=== PATIENT | male | born 1965 | race Caucasian/White ===

== ENCOUNTER → 2016-08-27 | Outpatient (CLI) | payer BC ==
--- NOTE | 2016-08-27 15:57 | PN ---
DATE OF SERVICE: 08/27/2016 This patient is a 50-year-old gentleman who has been followed in the sleep center for treatment of severe obstructive sleep apnea/hypopnea syndrome. Patient is using equipment practically 100% of the time for more than 4 hours. I checked his CPAP unit; usage 29 out of 30 nights for more than 4 hours. Leak is only 1 liter per minute. Apnea-hypopnea index reading is only 1.1 per hour. CPAP is at the pressure of 12 cm of water. RAMP starting at 6 cm of water. RAMP is on an automatic regimen. Patient feels comfortable; no sleepiness during the day. [place] Sleepiness Scale is 3. MEDICATIONS: 1. Benazepril. 2. Atorvastatin. 3. Toprol. 4. Cymbalta. 5. Hydrocodone. During physical exam, patient is in no distress. He did not take his pain medications today. VITAL SIGNS: BP 174/112. HR 100. Respiratory rate 16. No chest pain. No shortness of breath. Blood pressure on the right arm is 159/104. Weight 220. BMI 29.0. Temperature 98.6. Oxygen saturation at room air 97%. HEENT: PERRLA, EOMI. LUNGS: Clear. HEART: S1, S2 regular. ABDOMEN: Soft, nontender. Slightly obese. EXTREMITIES: No edema. IMPRESSION: 1. Severe obstructive sleep apnea/hypopnea syndrome. Apnea-hypopnea index 41.6, under control with CPAP at 12 cm of water. Patient demonstrated practically 100% compliance with treatment, benefitting from treatment. No problem with treatment. 2. Overweight. 3. Hypertension. 4. Hyperlipidemia. 5. Back problem. 6. Very rare restless leg symptoms; otherwise fine. 7. History of some restriction of nasal breathing secondary to nasal fracture ( ). PLAN: 1. Continue treatment with CPAP every night for the whole night with the same pressure. 2. Losing weight. 3. Sleep hygiene with regular time in bed for at least 8 hours. 4. No driving if feeling any sleepiness. 5. Prescription for all necessary CPAP supplies, including mask, tube and filters. Thank you very much for allowing me to participate in the management your patient. Sincerely, Ghulam Peng MD, PhD, FAASM. Diplomat of [place] Board of Sleep Medicine, Sleep Medicine Board by [place] Board of Medical Specialities, [place] Board of Internal Medicine
== END | disposition home or self-care (01) ==

== ENCOUNTER → 2017-12-09 | Outpatient (CLI) | payer BC ==
--- NOTE | 2017-12-09 16:01 | PN ---
PROGRESS NOTE DATE OF SERVICE: 12/09/2017 This patient is a 52-year-old gentleman who has been followed in the sleep center for treatment of severe obstructive sleep apnea-hypopnea syndrome. Patient continues to use his CPAP equipment without any problems every night for the whole night. He likes his machines, sleep well. No snoring. [place] Sleepiness Scale is 4. I checked his CPAP unit. CPAP pressure is 12 cm of water. Usage is 100% of the time, 7.9 hours on average. Leak is only 1 L/minute, which is nothing. Apnea-hypopnea index is only 1.1, which is perfect. MEDICATIONS: 1. Benazepril. 2. Atorvastatin. 3. Toprol. 4. Cymbalta. 5. Hydrocodone. PHYSICAL EXAMINATION: Patient in no distress. VITAL SIGNS: BP 153/94, HR 96, RR 16, height 6 feet 1 inch, weight 235, BMI 31, temperature 98.7, oxygen saturation at room air 95%. Repeat blood pressure on the right arm 146/84. HEENT: PERRLA, EOMI. Evaluation of oropharynx showed tongue protrudes midline; extremely low position of soft palate. NECK: Supple. No JVD. Thyroid is not palpable. LUNGS: Clear to percussion and to auscultation. Good air exchange. No wheezing or rhonchi. HEART: S1, S2 regular. No murmurs, gallops or rubs. ABDOMEN: Soft and nontender. Bowel sounds are present. No organomegaly appreciated. EXTREMITIES : No clubbing or cyanosis. TECHNOLOGY AUDITOR: Awake, alert, and oriented X3. Cranial nerves 2 to 7 intact. There is no fasciculation or atrophy. noted. No focal deficits observed. IMPRESSION: 1. Severe obstructive sleep apnea-hypopnea syndrome; apnea-hypopnea index 41.6, under full control with CPAP at 12 cm of water. Patient demonstrated 100% compliance with treatment, benefitting from treatment. 2. Hypertension. 3. Hyperlipidemia. 4. Back problems. 5. History of some restriction of nasal breathing after nasal fracture. 6. Mild obesity; body mass index 31. Patient's weight increased by 15 pounds since previous visit. PLAN: 1. Continue treatment with CPAP every night for the whole night. 2. Losing weight. 3. Sleep hygiene with regular time in bed for at least 8 hours. 4. No driving if feeling any sleepiness. 5. Prescription for all necessary CPAP supplies, including mask, tube, filters. 6. Follow-up visit in one year, or earlier if patient has any problems. Thank you very much for allowing me to participate in the management of your patient. Sincerely, Ghulam Peng MD, PhD, FAASM Diplomat of [place] Board of Medical Specialties [place] Board of Internal Medicine Senior Data Mining Analyst of [facility] [place] MMODL / JARRETTN: [id number] /
== END ==
LOC: SLEEP 14:40
PROVIDERS: ATTEND Internal Medicine
DX: G47.33 Obstructive sleep apnea (adult) (pediatric) (principal); I10 Essential (primary) hypertension; E78.5 Hyperlipidemia, unspecified; M79.89 Other specified soft tissue disorders; E66.9 Obesity, unspecified; Z68.31 Body mass index [BMI] 31.0-31.9, adult; Z99.89 Dependence on other enabling machines and devices; Z79.899 Other long term (current) drug therapy; Z87.09 Personal history of other diseases of the respiratory system; Z79.891 Long term (current) use of opiate analgesic

== ENCOUNTER → 2019-03-09 | Outpatient (CLI) | payer BC ==
--- NOTE | 2019-03-09 19:44 | PN ---
PROGRESS NOTE DATE OF SERVICE: 03/09/2019 This patient is a 53-year-old gentleman who has been followed in Sleep Center for treatment of obstructive sleep apnea-hypopnea syndrome. The patient has successfully continued to use his CPAP equipment every night. About one month ago, because the patient's CPAP unit did not function properly, his CPAP unit was replaced with a new one. Today is his first visit after he started to use new CPAP equipment. Patient continues to use it every night and sleeps well with it. He does not snore. [place] Sleepiness Scale is normal at 3. I checked his CPAP unit. CPAP pressure is 12 cm of water. Leak is 8 L/minute, which is acceptable. Usage is every night, and 29/30 nights for more than 4 hours with average usage 7.4 hours per night. Apnea-hypopnea index reading from the machine is only 0.6, which is absolutely perfect. MEDICATIONS: 1. Benazepril. 2. Atorvastatin. 3. Toprol. 4. Cymbalta. PHYSICAL EXAMINATION: GENERAL: A pleasant patient in no distress. VITAL SIGNS: BP 146/76, HR 61, RR 16, height 6 feet 2 inches, weight 240 pounds. Body mass index 30.9. Temperature 98.4, oxygen saturation at room air 96%. HEENT: PERRLA, EOMI. Evaluation of oropharynx showed tongue protrudes midline. Extremely low position of soft palate. Mallampati IV. NECK: Supple. No JVD. Thyroid is not palpable. Wide neck; 17-1/2 inches in circumference. LUNGS: Clear to percussion and to auscultation. Good air exchange. No wheezing or rhonchi. HEART: S1, S2 regular. No murmurs, gallops or rubs. ABDOMEN: Slightly obese. EXTREMITIES: No clubbing or cyanosis. HEEL ATTACHER: Awake, alert, and oriented X3. Cranial nerves 2 to 7 intact. There is no fasciculation or atrophy. noted. No focal deficits observed. IMPRESSION: 1. Obstructive sleep apnea-hypopnea syndrome, in severe range; apnea/hypopnea index 41.6. The patient has demonstrated 100% compliance with treatment, benefitting from treatment. 2. Hypertension. 3. Hyperlipidemia. 4. Back problems. 5. Restriction of nasal breathing after nasal fracture. 6. Mild obesity. PLAN: 1. The patient will continue to use CPAP equipment every night for the whole night. 2. Losing weight. 3. Sleep hygiene with regular time in bed for at least 8 hours. 4. No driving if feeling any sleepiness. 5. We will maintain all necessary prescriptions for CPAP supplies, including medium- sized full-face mask, heated tube, filters. Thank you very much for allowing me to participate in the management of your patient. Sincerely, Ghulam Peng MD, PhD, FAASM Diplomat of [place] Board of Medical Specialties [place] Board of Internal Medicine Prize Coordinator of [facility] [place] MMODL / JARRETTN: [id number] /
== END | disposition home or self-care (01) ==
LOC: SLEEP 14:30
PROVIDERS: ATTEND Internal Medicine
DX: G47.33 Obstructive sleep apnea (adult) (pediatric) (principal); E78.5 Hyperlipidemia, unspecified; I10 Essential (primary) hypertension; M53.9 Dorsopathy, unspecified; S02.2XXA Fracture of nasal bones, initial encounter for closed fracture; E66.9 Obesity, unspecified; Z79.899 Other long term (current) drug therapy; Z99.89 Dependence on other enabling machines and devices

== ENCOUNTER → 2020-09-12 | Outpatient (CLI) | payer BC ==
--- NOTE | 2020-09-12 22:38 | SFUN ---
SLEEP CENTER FOLLOW UP NOTE DATE OF SERVICE: 09/12/2020. 54-year-old gentleman has been followed in Sleep Center for treatment of obstructive sleep apnea-hypopnea syndrome. The patient continues to use his CPAP equipment every night for the whole night. No problems related to mask, fitting, pressures, humidification. [place] Sleepiness Scale today is 3. I checked CPAP unit. CPAP pressure is 12 cm of water, usage 27 out of 30 nights for more than 4 hours. Average usage 8.3 hours per night. Leak is 4 L/minute, which is normal. Apnea-hypopnea index only 1.2 which is perfect. Medications: Benazepril 10 mg once a day. Cymbalta 60 mg once a day, Allopurinol 300 mg once a day, Toprol-XL 100 mg once a day, atorvastatin 40 mg once a day. PHYSICAL EXAM: Patient in no distress. BP 145/94, HR 74, RR 15, height 6 and 2, weight 233, BMI 29.5, temperature 98.0, oxygen saturation at room air 95%. Oropharynx extremely low position of soft palate. Mallampati 4. NECK: Supple, no JVD. Thyroid is not palpable. LUNGS: Clear to percussion and to auscultation. Good air exchange. No wheezing or rhonchi. HEART: S1, S2 regular. No murmurs, gallops, or rubs. ABDOMEN: Soft and nontender. Bowel sounds are present. No organomegaly appreciated. EXTREMITIES: No clubbing or cyanosis. GEOMETRICIAN: Awake, alert, and oriented X3. Cranial nerves 2 to 7 intact. There is no fasciculation or atrophy. noted. No focal deficits observed. IMPRESSION: 1. Obstructive sleep apnea-hypopnea syndrome. Patient demonstrated good compliance with treatment benefitting from treatment. 2. Hypertension. 3. Gout. 4. Hyperlipidemia. 5. Back problems. PLAN: 1. Patient will continue to use PAP equipment every night for the whole night. 2. Sleep hygiene with regular time in bed for at least 7-1/2 to 8 hours. 3. Precautions related to driving. No driving if feeling sleepiness. 4. I will maintain all necessary prescription for PAP supplies including mask, tube, filters. 5. Watching weight. 6. No driving if feeling sleepiness. 7. Follow-up visit in 6 months or earlier if patient has any problems. Thank you very much for allowing me to participate in management of your patient. Sincerely, Ghulam Peng MD, PhD, FAASM Diplomat of [place] Board of Medical Specialties [place] Board of Internal Medicine Window Sash Installer of [facility] [place] SREEKANTH / YULIANA: [id number] /
== END | disposition home or self-care (01) ==
LOC: SLEEP 15:28
PROVIDERS: ATTEND Internal Medicine
DX: G47.33 Obstructive sleep apnea (adult) (pediatric) (principal); I10 Essential (primary) hypertension; M10.9 Gout, unspecified; E78.5 Hyperlipidemia, unspecified; M54.9 Dorsalgia, unspecified; Z99.89 Dependence on other enabling machines and devices; Z79.899 Other long term (current) drug therapy; Z79.811 Long term (current) use of aromatase inhibitors

== ENCOUNTER → 2021-10-23 | Outpatient (CLI) | payer BC ==
--- NOTE | 2021-10-23 18:34 | SFUN ---
SLEEP CENTER FOLLOW UP NOTE DATE OF SERVICE: 10/23/2021 This 55-year-old gentleman has been followed in Sleep Center for treatment of obstructive sleep apnea-hypopnea syndrome. The patient continues to use his CPAP equipment every night, but recently his machine became very noisy; so noisy that he he difficulties sleeping with the machine. It is a great problem for family for sleep. [place] Sleepiness Scale today is 7. I checked the CPAP unit. CPAP pressure is 12 cm of water. Usage is 30/30 nights, average 8 hours per night, which demonstrated good compliance. Leak is only 1 L/minute. Mask fits well. He is using a full-face mask. Apnea-hypopnea index is 1.1, which is absolutely normal. MEDICATIONS: 1. Benazepril 10 mg once a day. 2. Toprol-XL 100 mg once a day. 3. Allopurinol 300 mg once a day. 4. Cymbalta 60 mg once a day. 5. Spicer 10/325 mg four times a day. PHYSICAL EXAMINATION: GENERAL: Pleasant patient in no distress. VITAL SIGNS: BP 160/93, HR 70, RR 16, height 6 feet 2 inches, weight 245, BMI 31.4, temperature 98.3, oxygen saturation at room air 97%. HEENT: PERRLA, EOMI, evaluation of oropharynx showed tongue protrudes midline. Extremely low position of soft palate; Mallampati IV. NECK: Supple, no JVD. Thyroid is not palpable. LUNGS: Clear to percussion and to auscultation. Good air exchange. No wheezing or rhonchi. HEART: S1, S2 regular. No murmurs, gallops, or rubs. ABDOMEN: Soft and nontender. Bowel sounds are present. No organomegaly appreciated. EXTREMITIES: No clubbing or cyanosis. ZIPPER CUTTER: Awake, alert, and oriented X3. Cranial nerves 2 to 7 intact. There is no fasciculation or atrophy. noted. No focal deficits observed. IMPRESSION: 1. Obstructive sleep apnea-hypopnea syndrome. Patient demonstrated 100% compliance with treatment, benefitting from treatment. Normal respiration on CPAP. CPAP unit is old and noisy. 2. Mild obesity; BMI 31.4. 3. Hypertension. 4. Gout. 5. Hyperlipidemia. 6. Back problems. PLAN: 1. Prescription to replace CPAP unit. 2. Monitoring blood pressure. Low-sodium diet. 3. Patient will continue to use PAP equipment every night for the whole night. 4. Sleep hygiene with regular time in bed for at least 7-1/2 to 8 hours. 5. Precautions related to driving. No driving if feeling sleepiness. 6. I will maintain all necessary prescription for PAP supplies including mask, tube, filters. 7. Watching weight. 8. Follow-up visit after the patient gets his new CPAP unit. Thank you very much for allowing me to participate in the management of your patient. Sincerely, Ghulam Peng MD, PhD, FAASM Diplomat of [place] Board of Medical Specialties Sleep Medicine Board of [place] Board of Internal Medicine Dam Attendant of [facility] [place] MMODL / IJN: [id number] /
== END ==
LOC: SLEEP 15:56
PROVIDERS: ATTEND Internal Medicine
DX: G47.33 Obstructive sleep apnea (adult) (pediatric) (principal); E66.9 Obesity, unspecified; I10 Essential (primary) hypertension; M10.9 Gout, unspecified; E78.5 Hyperlipidemia, unspecified; M54.9 Dorsalgia, unspecified; Z68.31 Body mass index [BMI] 31.0-31.9, adult; Z79.899 Other long term (current) drug therapy

== ENCOUNTER → 2023-03-03 | Outpatient (CLI) | payer BC ==
--- NOTE | 2023-03-03 17:09 | P.PN ---
Subjective DATE: 03/03/2023 FOLLOW UP VISIT. Patient with obstructive sleep apnea hypopnea syndrome return to sleep center for follow-up visit. Information from previous visit have been reviewed. Patient is using PAP equipment every night for the whole night, getting PAP supplies in time. The patient does not have significant problems with the mask, PAP unit and humidification. [place] sleepiness scale is 6, which is normal. I checked information from PAP unit. PAP unit pressure 12 cm H2O. Usage is 100 % for more then 4 hours, average 8 hours per night. Leak is 1 l/m, which is in acceptable range. Apnea Hypopnea Index is 0.7, which is normal. MEDICATIONS:1. Allopurinol 2. Cymbalta 60 mg once a day 3. Crestor 4. Benazepril During physical exam: GENERAL: A pleasant patient without any distress. VITAL SIGNS: BP 144/90, HR 71, RR 12, weight to 37.8, temperature 97.3, oxygen saturation at room air 97 % . HEENT: PERRLA, EOMI.low position of soft palate, Mallapati 4 . NECK: Supple. No JVD. LUNGS: Clear to percussion and to auscultation. Good air exchange. No wheezing or rhonchi. HEART: S1, S2 regular. ABDOMEN: Soft and nontender.[] EXTREMITIES: No clubbing or cyanosis. EARLY CHILDHOOD ASSOCIATE: Awake, alert, and oriented x3. No focal deficit. Impressions: 1. Obstructive sleep apnea-hypopnea syndrome. Patient demonstrated great compliance with treatment, benefiting from treatment. 2. Mild obesity, BMI 30.5, patient lost 8 pounds comparing with previous visit. 3. Hypertension. 4. Gout. 5. Hyperlipidemia. 6. Back problems. Plan: 1. Continue using PAP equipment every night for the whole night. 2. To change air filter at least 1-2 times per month. 3. PAP unit should stay lower then position of the head. 4. Advised patient to remove all remaining water from humidifier canister daily and make it dry after each usage. Refill canister with fresh distilled water before each usage. 5. Sleep hygiene with regular time in bed for at least 8 hours. 6. Precautions related to driving. No driving if feel any sleepiness. 7. I will maintain prescription for PAP supplies including mask, tube, filters. 8. Follow up visit in 6 months or earlier if patient has any problems. 9. Watching weight. Thank you very much for allowing me to participate in the management of your patient. Ghulam Peng MD, PhD, FAASM. Diplomat of [place] Board of Sleep Medicine, Sleep Medicine Board by [place] Board of Internal Medicine Junior Technical Writer of [facility] [place]
== END ==
LOC: 3 N SLEEP 16:32
PROVIDERS: ATTEND Internal Medicine
DX: G47.33 Obstructive sleep apnea (adult) (pediatric) (principal); E66.9 Obesity, unspecified; E78.5 Hyperlipidemia, unspecified; I10 Essential (primary) hypertension; M10.9 Gout, unspecified; Z68.30 Body mass index [BMI] 30.0-30.9, adult; Z79.899 Other long term (current) drug therapy; Z99.89 Dependence on other enabling machines and devices
CPT/HCPCS: 99212

== ENCOUNTER → 2023-09-09 | Outpatient (CLI) | payer BC ==
--- NOTE | 2023-09-09 11:30 | P.PN ---
Subjective DATE: 07/10/2024 FOLLOW UP VISIT. Patient with obstructive sleep apnea hypopnea syndrome return to sleep center for follow-up visit. Information from previous visit have been reviewed. Patient is using PAP equipment every night for the whole night, getting PAP supplies in time. Occasionally patient has snoring according to his . The patient does not have significant problems with the mask, PAP unit and humidification. [place] sleepiness scale is 7. I checked information from PAP unit. PAP unit pressure 12 cm H2O. Usage is 100 % for more then 4 hours, average 9.1 hours per night. Leak is 2 l/m, which is in acceptable range. Apnea Hypopnea Index is 0.5, which is normal. MEDICATIONS:1. Allopurinol 300 mg once a day 2. Benazepril/hydrochlorothiazide 20-12.5 mg once a day 3. Cymbalta 60 mg once a day 4. Crestor 40 mg once a day 5. Toprol 100 mg once a day 6. . Pregabalin 75 mg twice a day 7. . Percocet During physical exam: GENERAL: A pleasant patient without any distress. VITAL SIGNS: BP 133/84, HR 78, RR 12 , weight 240.0, temperature 98.4, oxygen saturation at room air 97 % . HEENT: PERRLA, EOMI.low position of soft palate, Mallapati 4 . NECK: Supple. No JVD. LUNGS: Clear to percussion and to auscultation. Good air exchange. No wheezing or rhonchi. HEART: S1, S2 regular. ABDOMEN: Soft and nontender.[] EXTREMITIES: No clubbing or cyanosis. LAMINATE FLOOR INSTALLER: Awake, alert, and oriented x3. No focal deficit. I changed regimen of CPAP unit to AutoPAP 10-15 centimeters of water prevent snoring. Impressions: 1. Obstructive sleep apnea-hypopnea syndrome. Patient demonstrated great compliance with treatment, benefiting from treatment. 2. Mild obesity, borderline with overweight, BMI 30.4. 3. Hypertension. 4. Hyperlipidemia. 5. Gout. 6. Back problems. Plan: 1. Continue using PAP equipment every night for the whole night. 2. To change air filter at least 1-2 times per month. 3. PAP unit should stay lower then position of the head. 4. Advised patient to remove all remaining water from humidifier canister daily and make it dry after each usage. Refill canister with fresh distilled water before each usage. 5. Sleep hygiene with regular time in bed for at least 8 hours. 6. Precautions related to driving. No driving if feel any sleepiness. 7. I will maintain prescription for PAP supplies including mask, tube, filters. 8. Watching and losing weight. 9. Follow up visit in 6 months or earlier if patient has any problems. Thank you very much for allowing me to participate in the management of your patient. Ghulam Peng MD, PhD, FAASM. Diplomat of [place] Board of Sleep Medicine, Sleep Medicine Board by [place] Board of Internal Medicine Transportation Aide of [facility] [place]
== END ==
LOC: 3 N SLEEP 10:42
PROVIDERS: ATTEND Internal Medicine
DX: G47.33 Obstructive sleep apnea (adult) (pediatric) (principal); E66.3 Overweight; M10.9 Gout, unspecified; I10 Essential (primary) hypertension; E78.5 Hyperlipidemia, unspecified; Z68.30 Body mass index [BMI] 30.0-30.9, adult; Z99.89 Dependence on other enabling machines and devices
CPT/HCPCS: 99212

== ENCOUNTER → 2024-04-27 | Outpatient (CLI) | payer BC ==
[2024-04-27 10:46] VITALS: BP 108/73; PULSE 77; RESP 16; TEMP 98.6
--- NOTE | 2024-04-27 11:18 | P.PROGSL ---
Subjective DATE: 04/27/2024 FOLLOW UP VISIT. Patient with obstructive sleep apnea hypopnea syndrome return to sleep center for follow-up visit. Information from previous visit have been reviewed. Patient is using PAP equipment every night for the whole night, getting PAP supplies in time. The patient does not have significant problems with the mask, PAP unit and humidification. [place] sleepiness scale is 4, which is normal. I checked information from PAP unit. PAP unit pressure 10-15, average 12.4 cm H2O. Usage is 100% for more then 4 hours, average 9.6 hours per night. Leak is perfect 1 l/m. Apnea Hypopnea Index is also perfect 0.9. MEDICATIONS benazeprilhydrochlorothiazide 20-12.5 mg once a day, Cymbalta 60 mg once a day, Toprol 100 mg once a day, Crestor 40 mg once a day. During physical exam: GENERAL: A pleasant patient without any distress. VITAL SIGNS: Please see below, weight is 229.2 lbs. HEENT: PERRLA, EOMI.low position of soft palate, Mallapati 4 . NECK: Supple. No JVD. LUNGS: Clear to percussion and to auscultation. Good air exchange. No wheezing or rhonchi. HEART: S1, S2 regular. ABDOMEN: Soft and nontender.[] EXTREMITIES: No clubbing or cyanosis. SENIOR RECRUITMENT CONSULTANT: Awake, alert, and oriented x3. No focal deficit. Impressions: 1. Obstructive sleep apnea-hypopnea syndrome. Patient demonstrated great compliance with treatment, benefiting from treatment. 2. Very mild obesity borderline with overweight, patient lost 11 pounds since previous visit, BMI reduced to 30.3. 3. Hypertension. 4. Hyperlipidemia. 5. Gout. 6. Back problems. Plan: 1. Continue using PAP equipment every night for the whole night. 2. Sleep hygiene with regular time in bed for at least 7.5-8 hours 3. PAP unit should stay lower then position of the head. 4. Advised patient to remove all remaining water from humidifier canister daily and make it dry after each usage. Refill canister with fresh distilled water before each usage. 5. Watching weight. 6. Precautions related to driving. No driving if feel any sleepiness. 7. I will maintain prescription for PAP supplies including mask, tube, filters. 8. Follow up visit in 6 months or earlier if patient has any problems. Thank you very much for allowing me to participate in the management of your patient. Ghulam Peng MD, PhD, FAASM. Diplomat of [place] Board of Sleep Medicine, Sleep Medicine Board by [place] Board of Internal Medicine Head Butler of [facility] [place] Objective - Vital Signs Vital Signs: Vital Signs Temp 98.6 F 04/27/24 10:45 Pulse 77 04/27/24 10:45 Resp 16 04/27/24 10:45 BP 108/73 04/27/24 10:45 Pulse Ox 96 04/27/24 10:45 FiO2 Intake & Output 04/26/24 04/27/24 04/27/24 18:59 06:59 18:59 Weight 103.929 kg
== END ==
LOC: 3 N SLEEP 10:25
PROVIDERS: ATTEND Internal Medicine
CPT/HCPCS: 99212

== ENCOUNTER → 2024-12-13 | Outpatient (CLI) | payer BC ==
[2024-12-13 14:40] VITALS: BP 115/69; PULSE 74; RESP 16; TEMP 98.1
--- NOTE | 2024-12-13 15:02 | P.PROGSL ---
Subjective DATE: 12/13/2024 FOLLOW UP VISIT. Patient with obstructive sleep apnea hypopnea syndrome return to sleep center for follow-up visit. Information from previous visit have been reviewed. Patient is using PAP equipment every night for the whole night, getting PAP supplies in time. The patient does not have significant problems with the mask, PAP unit and humidification. [place] sleepiness scale is 6. I checked information from PAP unit. PAP unit pressure 10-15, average 13.4 cm H2O. Usage is 100% for more then 4 hours, average 8.5 hours per night. Leak is 4 l/m, which is in acceptable range. Apnea Hypopnea Index is 0.9, which is normal. MEDICATIONS have been reviewed, please see below. During physical exam: GENERAL: A pleasant patient without any distress. VITAL SIGNS: Please see below, weight is 232 lbs. HEENT: PERRLA, EOMI.low position of soft palate, [place] 4 . NECK: Supple. No JVD. LUNGS: Clear to percussion and to auscultation. Good air exchange. No wheezing or rhonchi. HEART: S1, S2 regular. ABDOMEN: Soft and nontender.[] EXTREMITIES: No clubbing or cyanosis. CARE TRANSITIONS MANAGER: Awake, alert, and oriented x3. No focal deficit. Impressions: 1. Obstructive sleep apnea-hypopnea syndrome. Patient demonstrated great compliance with treatment, benefiting from treatment. Occasionally patient snores with CPAP. 2. Hypertension. 3. Hyperlipidemia. 4. Gout. 5. Back problems. I increased range of the pressure in Auto[employer]ap unit to 10-18 cm of water. Plan: 1. Continue using PAP equipment every night for the whole night. 2. Sleep hygiene with regular time in bed for at least 7.5-8 hours 3. PAP unit should stay lower then position of the head. 4. Advised patient to remove all remaining water from humidifier canister daily and make it dry after each usage. Refill canister with fresh distilled water before each usage. 5. Watching weight. 6. Precautions related to driving. No driving if feel any sleepiness. 7. I will maintain prescription for PAP supplies including mask, tube, filters. 8. Follow up visit in 8 months or earlier if patient has any problems. Thank you very much for allowing me to participate in the management of your patient. Ghulam Peng MD, PhD, FAASM. Diplomat of [place] [employer], Sleep Medicine Board by [place] [employer] Certified Driver Examiner of [facility] [place] Objective - Vital Signs Vital Signs: Vital Signs Temp 98.1 F 12/13/24 14:40 Pulse 74 12/13/24 14:40 Resp 16 12/13/24 14:40 BP 115/69 12/13/24 14:40 Pulse Ox 96 12/13/24 14:40 FiO2 Intake & Output 12/12/24 12/13/24 12/13/24 18:59 06:59 18:59 Weight 105.233 kg Home Medications: Home Medications Medication Instructions Recorded Confirmed Type Benazepril/Hydrochlorothiazide 1 each PO DAILY 12/13/24 12/13/24 History [Benazepril-Hctz 20-12.5 mg Tab] DULoxetine HCL [Cymbalta] 60 mg PO DAILY 12/13/24 12/13/24 History Ezetimibe/Rosuvastatin Calcium 40 mg PO DAILY 12/13/24 12/13/24 History [Roszet 40-10 mg Tablet] Metoprolol Succinate [Kapspargo 100 mg PO DAILY 12/13/24 12/13/24 History Sprinkle] Pregabalin [Lyrica] 75 mg PO BID 12/13/24 12/13/24 History Tamsulosin HCl [Flomax] 0.4 mg PO DAILY 12/13/24 12/13/24 History allopurinoL 300 mg PO DAILY 12/13/24 12/13/24 History
== END ==
LOC: 3 N SLEEP 14:02
PROVIDERS: ATTEND Internal Medicine
DX: G47.33 Obstructive sleep apnea (adult) (pediatric) (principal); I10 Essential (primary) hypertension; E78.5 Hyperlipidemia, unspecified; M10.9 Gout, unspecified; Z99.89 Dependence on other enabling machines and devices
CPT/HCPCS: 99212